=== PATIENT | female | born 1995 | race Caucasian/White ===

== ENCOUNTER → 2017-02-13 | Day surgery (SDC) | payer BC ==
--- NOTE | 2017-02-12 08:17 | MH ---
cc: MARIELA MORRIS M.D. DATE OF ADMISSION: 02/13/2017 DATE OF 1995 INDICATIONS This is a 21-year-old female with chronic recurrent tonsillitis. She has tonsil hypertrophy, deep crypts and debris. She has been on multiple rounds of antibiotics and has not responded. She is to go tonsillectomy. PAST MEDICAL HISTORY ALLERGIES No known drug allergies. ILLNESSES Significant for tonsillitis MEDICATIONS 1. Aleve. 2. Lisinopril. 3. TobraDex suspension. PHYSICAL EXAMINATION GENERAL: A well-developed, well-nourished female in no apparent distress. HEENT: Normocephalic, atraumatic. Extraocular motions intact. External ear canals clear. Lips, oral mucosa and oropharynx show no lesions, tonsils 3-4+ with erythema and debris, tonsil crypts. CHEST: Clear to auscultation. HEART: Regular rate. ABDOMEN: Soft. EXTREMITIES: No lesion. NEUROLOGIC EXAM: Nonfocal. ASSESSMENT AND PLAN This is a 21-year-old female with recurrent tonsillitis, to undergo tonsillectomy. The risks and benefits were discussed with the patient. The risks include but are not limited to those of anesthesia, bleeding, unfavorable scarring, velopharyngeal insufficiency, dehydration, depression, abscess, voice change, bleeding. The patient states she understands and accepts the risks of the procedure. MD PRANAV Lock/TUSHAR /7:39 AM /8:10 AM
[~2017-02-13] MED LIST: ACETAMINOPHEN 1000 MG/100 ML VIAL IV ONE; ACETAMINOPHEN 325MG/HYDROcodone 7.5MG/15ML UDC PO PRN; CHLORHEXIDINE GLUCONATE 2 % 1 PACK (2 CLOTHS) TOPICAL PRN; DO NOT ADM ANY ANTICOAGULANT DRUGS PRN; FAMOTIDINE 20 MG/2 ML VIAL ONE; INSULIN HUMAN REGULAR 1,000 UNITS/10 ML VIAL SQ PRN; LACTATED RINGER'S 1000 ML IV PRN; LISI10TA3 PO; METOPROLOL TARTRATE 25 MG TAB PO PRN; MIDAZOLAM HCL 2 MG/2 ML VIAL ONE; MORPHINE SULFATE 4 MG/ML INJ IV PRN; ONDANSETRON HCL 4 MG/2 ML VIAL IV PUSH ONE; ONDANSETRON HCL 4 MG/2 ML VIAL IV PUSH PRN; POVIDONE IODINE 5% (ANTISEPSIS KIT) 4 APPLICATIONS EACH NARE PRN; PROPOFOL 200 MG/20 ML AMP IV ONE; SODIUM CHLORID 0.9% 500 ML IV PRN; ceFAZolin 1,000 MG/NS 100 ML IV SCH
[2017-02-13 07:51] VITALS: BP 136/83; PULSE 92; RESP 18; TEMP 99.1; O2SAT 99
[2017-02-13 08:10] LABS: AUTOMATED NEUTROPHIL # 4.6 TH/MM3 (1.8-7.7); BASOPHIL # 0.1 TH/MM3 (0-0.2); BASOPHIL % 0.9 % (0.0-2.0); EOSINOPHIL # 0.2 TH/MM3 (0-0.4); EOSINOPHIL % 2.5 % (0.0-4.0); HEMATOCRIT 37.9 % (35.0-46.0); HEMO FLAGS DIFF FINAL; LYMPHOCYTE # 2.3 TH/MM3 (1.0-4.8); MEAN CORPUSCULAR HEMOGLOBIN 28.5 PG (27.0-34.0); MEAN CORPUSCULAR HGB CONC 34.3 % (32.0-36.0); MONO % 9.6 % (0.0-8.0); PLATELET COUNT 315 TH/MM3 (150-450); RED BLOOD COUNT 4.56 MIL/MM3 (4.00-5.30); RED CELL DISTRIBUTION WIDTH 13.7 % (11.6-17.2); WHITE BLOOD COUNT 7.9 TH/MM3 (4.0-11.0)
--- NOTE | 2017-02-13 09:23 | MP ---
cc: MARIELA MORRIS M.D. DATE OF SURGERY: 02/13/2017 DATE OF : 1995 INDICATIONS 21-year-old female with chronic recurrent tonsillitis, tonsil hypertrophy. She has not responded to medical therapy and is to undergo tonsillectomy. PREOPERATIVE DIAGNOSIS Chronic recurrent tonsillitis, tonsillar hypertrophy. POSTOPERATIVE DIAGNOSIS Chronic recurrent tonsillitis, tonsillar hypertrophy. PROCEDURE Tonsillectomy. SUMMARY The patient was brought to the operating room and placed in supine position. The oral cavity was exposed with retractor. There was no submucous cleft. The right tonsil was removed with coblation technique from superior to inferior. The left tonsil was removed in a similar fashion. Both tonsil beds were inspected for hemostasis which was obtained by suction cautery. The patient was suctioned and retractor was removed. She was awakened, extubated and taken to recovery in stable condition. MD PRANAV Lock/ARIAN /9:02 AM /9:07 AM
[2017-02-13 12:35] VITALS: BP 129/87; PULSE 79; RESP 18; TEMP 98; O2SAT 99
== END | disposition home or self-care (01) ==
LOC: HSDC 07:15
PROVIDERS: ATTEND Specialist
DX: J35.01 Chronic tonsillitis (principal); I10 Essential (primary) hypertension; E66.9 Obesity, unspecified; Z91.013 Allergy to seafood
CPT/HCPCS: 42826; 85025; 88304; J0131; J2250; J2405; J3010; 88300